=== PATIENT | male | born 1960 | race Caucasian/White ===

== ENCOUNTER 2023-04-26 03:57 | Inpatient (IN) | payer OTHER, SELFPAY ==
--- NOTE | 2023-04-26 04:01 | ECG_ITS ---
Test Reason : CHEST PAIN Blood Pressure : / mmHG Vent. Rate : 105 BPM Atrial Rate : 000 BPM P-R Int : 000 ms QRS Dur : 094 ms QT Int : 344 ms P-R-T Axes : 000 010 044 degrees QTc Int : 454 ms Atrial fibrillation with rapid ventricular response Minimal voltage criteria for LVH, may be normal variant ( [employer] product ) Anteroseptal infarct , age undetermined Abnormal ECG No previous ECGs available Referred By: Tracy Naylor Electronically Signed By:HERMAN LANDRUM
[2023-04-26 07:00] LABS: D Dimer High Sensitivity 359 NG/ML
--- NOTE | 2023-04-26 07:00 | CA_ITS ---
Transthoracic Echocardiogram Patient (Last, First, Middle): Lázaro Granda F Gender: Male Date of : 1960 Age: 62 Procedure Date: 04/26/2023 Procedure Type: Transthoracic Echocardiogram Location: ER Height: 180.34 cm Weight: 101.61 kg BSA: 2.21 m2 Heart Rate: 96 bpm BP: 136 / 74 mmHg Visual Specialist: KENNY Referring MD: Keshav Richard MD Mold Finisher: Ben Hunter MD Symptoms: chest pain, suspected ACS, to eval for WMA Study Quality: Fair ECG Rhythm: Atrial Fibrillation Conclusions: - 1. Normal LV ejection fraction 55-60% with mild asymmetric septal hypertrophy 2. Mildly to moderately dilated left atrium 3. Aortic valve not well visualized but there appears to be mild to-moderate aortic regurgitation and possibly early mild aortic stenosis 4. Mildly dilated ascending aorta at 3.7 cm 5. No gross pericardial effusion Findings Left Ventricle Normal left ventricular size, thickness, and systolic function. The visually estimated ejection fraction is between 55-60%. Diastolic function is indeterminate on the basis of available data. There is mild septal asymmetric hypertrophy. Right Ventricle Normal right ventricular cavity size and systolic function. Atria The left atrium is mildly dilated. Interatrial shunt cannot be excluded. The right atrium is likely dilated. Aortic Valve The aortic valve was not well visualized. There is mild calcification of the aortic valve. There is mild to moderate aortic valve regurgitation. Mitral Valve The mitral valve was not well visualized. There is trace mitral valve regurgitation. There is no mitral valve stenosis. Pulmonic Valve The pulmonic valve was not well visualized. Tricuspid Valve Likely normal tricuspid valve structure and function. Tricuspid regurgitation envelope is inadequate for calculation of right ventricular systolic pressure. Normal right atrial pressure. Great Vessels The pulmonary artery was not well visualized. There is mild dilatation of the ascending aorta measuring 3.70 cm. Venous The inferior vena cava is normal in size and collapses greater than 50% with inspiration. Pericardium/Pleural There is no evidence of pericardial effusion. Prior Study Comparison No prior study available for comparison. Measurements 2D Linear Measurements IVSd: 0.92 0.6-0.9/0.6-1.0 cm LVIDd: 5.67 3.9-5.3/4.2-5.9 cm LVIDd Index: 2.57 2.4-3.2/2.2-3.1 cm/m2 LVIDs: 2.60 2.0-3.6 cm LVPWd: 1.04 0.7-1.1 cm LA Diam: 3.50 2.7-3.8/3.0-4.0 cm LAIDs Index: 1.58 1.5-2.3 cm/m2 LV Mass: 272.02 67-162/88-224 g LV Mass Index: 123.09 43-95/49-115 g/m2 LVOT Diam: 2.30 3.0+(-)1.3 cm 2D Systolic Function EF 4C: 55.30 >55% EF 2C: 56.80 >55% EF BiP: 58.50 >55% Mitral Valve MV Pk E: 1.25 MV Decel Time: 210.00 E'Lateral: 8.90 E'Medial: 9.37 E/E' Med: 13.30 E/E' Lat: 14.00 PHT: 62.00 MVA PHT: 3.55 Decel [place]: 6.05 Aortic Valve AoV Pk Bryan: 2.10 AoV Mn Bryan: 1.48 AoV VTI: 0.40 AoV Pk Grad: 18.00 Aov Mn Grad: 10.00 CECIL Cont.VTI: 2.80 LVOT LVOT Pk Bryan: 1.31 LVOT Mn Bryan: 0.87 LVOT VTI: 0.27 LVOT Pk Grad: 7.00 LVOT Mn Grad: 4.00 LVOT Diam: 2.30 LVOT Area: 4.15 Diastolic Function MV Pk E: 1.25 E'Medial: 9.37 E/E' Med: 13.30 E' Laterial: 8.90 E/E' Lat: 14.00 Right Ventricle TAPSE (mm): 2.67 TVS' Bryan: 19.20 Tricuspid Valve RA Press: 3.00 Great Vessels Aorta Sinus of Valsalva: 3.46 2.0-3.5 cm Ao Asc: 3.70 2.1-3.4 cm Updated in Other Vendor System with Status of Final Ben Hunter MD electronically signed on 04/27/2023 8:26:13 AM with status of Final
[2023-04-26 07:01] LABS: Basophils Absolute Auto 0.1 X10*3/uL (0.0-0.2); Basophils Percent Auto 0.7 % (0-2); Eosinophils Absolute Auto 0.2 X10*3/uL (0.0-0.4); Eosinophils Percent Auto 1.9 % (0-4); Hematocrit 44.5 % (42.0-52.0); Hemoglobin 14.9 g/dl (14.0-18.0); Imm Gran Abs Auto 0.04 X10*3/uL (0.00-0.03); Imm Gran Pct Auto 0.4 % (0.0-0.4); Lymphocytes Absolute Auto 2.1 X10*3/uL (1.2-4.9); Lymphocytes Percent Auto 19.8 % (20-40); MANUAL DIFF FLAG NO; Mean Corpuscular HGB Conc 33.5 g/dl (31.0-36.0); Mean Corpuscular Hemoglobin 29.2 pg (27.0-33.0); Mean Corpuscular Volume 87.3 fL (80.0-98.0); Mean Platelet Volume 9.3 fL (9.4-12.4); Monocytes Absolute Auto 1.2 X10*3/uL (0.1-1.2); Monocytes Percent Auto 10.7 % (2-11); Neutrophils Absolute Auto 7.2 x10*3/uL (2.0-8.3); Neutrophils Percent Auto 66.5 % (45-73); Platelet Count 261 X10*3/uL (160-400); Red Cell Distribution Width 13.9 % (11.0-16.0); White Blood Count 10.8 X10*3/uL (4.8-10.8)
[2023-04-26 07:12] LABS: Anion Gap 13 (12-20); Blood Urea Nitrogen 24 mg/dL (9-16); Carbon Dioxide 24 mmol/L (22-29); Chloride 106 mmol/L (96-108); Estimated Glomerular Filt Rate > 60; Glucose Random 121 mg/dL (60-115); Lipase 33 U/L (8-78); Potassium 4.2 mmol/L (3.3-5.1); Sodium 139 mmol/L (135-145)
[2023-04-26 07:13] LABS: Troponin-I High Sensitivity 2.8 ng/L (<3.5-35.0)
[2023-04-26 07:25] VITALS: BP 139/77; PULSE 84; RESP 24; TEMP 37.5; O2SAT 94
[2023-04-26 07:26] LABS: Calcium 9.4 mg/dL (8.4-10.2)
[2023-04-26 10:43] VITALS: BP 136/74; PULSE 95; RESP 22; O2SAT 95
[2023-04-26 10:48] VITALS: BMI 31.4
--- NOTE | 2023-04-26 10:58 | P.HPHOSP_ITS ---
History of Present Illness Date of Service: 04/26/23 Chief Complaint: chest pain This is a 62 year old male with a PMH of HTN (on 3 meds), hypertriglyceridemia, possible aortic regurg (by his history) who presented to [facility] over night with sudden onset chest pain. The patient reports that he was in his usual state of health the day prior to admission. Around 9pm the evening before, the patient experienced some heartburn after eating a snack. This was relieved with some antacids. He eventually fell asleep but was awoken around 3AM on the day of admission due to severe substernal chest pain which was constant. He again attempted antacids but had minimal improvement and hence, he prestned to [facility]. The patient denies any prior such episodes. In fact, he appears to be fairly physically active and goes to the gym routinely. He denies any family history of premature cardiac disease. He denies tobacco. While in the ED, his work up revealed A. Fib with RVR. His chest pain has improved and he now describes it as more of a soreness. His initial HS trop-I was 2.8, a repeat is pending. Review of Systems 2 Review of Systems: negative except HPI PMFSH Pertinent family history: CAD in mother, but she lived until her 90s Social History (Updated 04/26/23 @ 11:06 by Keshav Richard MD) Alcohol intake: current Alcohol intake frequency: 0-2 drinks per day Patient Tobacco Use Status: Never used Tobacco Meds Allergies Allergy/AdvReac Type Severity Reaction Status Date / Time gabapentin Allergy Hallucinati Verified 04/26/23 10:53 ons Physical Exam 2 Vital Signs and Narrative: Vital Signs: Last Vital Signs Temp 99.5 F 04/26/23 07:25 Pulse 95 04/26/23 10:43 Resp 22 H 04/26/23 10:43 BP 136/74 04/26/23 10:43 Pulse Ox 95 04/26/23 10:43 O2 Del Method Room Air 04/26/23 10:43 BMI result Body Mass Index 31.4 Const: Other: Constitutional - Awake and Alert, No apparent distress Eyes - PERRLA, EOMI Cardiovascular - S1S2, RRR, No edema Respiratory - Normal lung expansion, Normal respiratory effort, No respiratory distress, CTA bilaterally Gastrointestinal - NT / ND; +BS; No rebound or guarding - No CVA tenderness Extremities - no calf tenderness bilaterally, no swelling Musculoskeletal - Normal inspection, normal ROM Skin - Warm/Dry Neurological - Alert & oriented x3, No focal deficit Psychological - Appropriate affect Results Labs 04/26/23 04:18 04/26/23 04:18 Labs: Laboratory Results - last 24 hr 04/26/23 04:18 MCV 87.3 MCH 29.2 MCHC 33.5 RDW 13.9 Plt Count 261 MPV 9.3 L Immature Gran % (Auto) 0.4 Neut % (Auto) 66.5 Lymph % (Auto) 19.[address] [place] % (Auto) 10.7 Eos % (Auto) 1.9 Baso % (Auto) 0.7 Lymph # (Auto) 2.1 [place] # (Auto) 1.2 Eos # (Auto) 0.2 Baso # (Auto) 0.1 Abs Immat Gran (auto) 0.04 H Absolute Neuts (auto) 7.2 Absolute Nucleated RBC 0.000 Nucleated RBC % (auto) 0.0 D-Dimer High Sensitivty 359 Anion Gap 13 Estim Creat Clear Calc TNP Estimated GFR > 60 Random Glucose 121 H Calcium 9.4 Lipase 33 Assessment and Plan (1) Hypertriglyceridemia: Status: Acute (2) Essential hypertension: Status: Acute Plan This is a 62 year old male with PMH of HTN and hypertriglyceridemia who presents to the ED with sudden onset chest pain. He is found to be in new onset A. Fib with RVR. However, his presentation is most concerning for acute coronary syndrome, hence he will be admitted for further work up and management. 1. Suspected ACS Initial HS trop-I negative and EKG with non-specific T wave changes; however, given his presentation, ACS remains high on differential Will repeat troponin and initiate anticoauglation 2d echo and cardiology consult ASA, statin 2. New onset A. fib with RVR rates improving await med rec and continue/adjust meds as needed likely needs OAC 3. HTN on multiple meds at home continue once med rec done 4. Hypertriglyceridemia continue baseline meds check lipid panel Full Code DVT pptx, Lovenox Time Spent With Patient Time: Total time managing care of this patient today ____ minutes. Quality Stroke Does the patient have a stroke diagnosis?: No VTE Prior VTE?: No VTE Risk Level:: Medical - moderate - high VTE Device Contraindication: Patient Refused VTE Drug Contraindication: N/A - Med Ordered
[2023-04-26 11:19] LABS: Troponin-I High Sensitivity 3.2 ng/L (<3.5-35.0)
--- NOTE | 2023-04-26 12:14 | PM.CNCAR ---
History of Present Illness History of Present Illness Date of Service: 04/26/23 Requesting physician: Keshav Richard Consult reason: chest pain and atrial fibrillation Chief complaint: Chest Pain Narrative: I was consulted to see Lázaro in cardiology consultation today for chest discomfort as well as new onset atrial fibrillation. He is a 62-year-old male with prior history of hypertension, hyperlipidemia, aortic regurgitation as per him related to aortic valve pathology as per him, sees Dr. Braga at [facility], acid reflux disease, anxiety. Patient said he was in usual state of health yesterday, had a late meal yesterday after hours did not sit well with him and he got some discomfort in his chest. He took some Cristiane-[place] with relief of his discomfort. He then went to bed and then nighttime run 3 and woke up with severe chest pressure. He has never had similar symptoms in the past. Got extremely concerned any came to the emergency room. His EKG then reveal atrial fibrillation with nonspecific ST changes. His 1st troponin was negative. He had a 2nd troponin which was also within normal limits with no delta. He was then given some GI cocktail and he says symptoms are gradually subsiding. He remains in atrial fibrillation with more controlled ventricular response at this point time. He is somewhat anxious about it. He has never had any cardiac events in the past. He denies having myocardial infarction in the past. He does have acid reflux after he eats late but symptoms are usually resolve with Cristiane-[place] in the past. He has never had any trouble swallowing. No other GI issues in the past. He has longstanding history of hypertension which is borderline control at this point time on 3 different agents. He also has hypertriglyceridemia. No strong family history for premature coronary artery disease. 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 Review of Systems Constitutional: Constitutional: Reports no additional constitutional complaints Eyes: Eyes: Reports no additional eye complaints Cardiovascular: Cardiovascular: Reports chest pain at rest, Denies rapid heart rate, Denies leg edema, Denies lightheadedness, Denies Loss of Consciousness, Denies palpitations and Denies dyspnea Respiratory: Respiratory: Reports no additional respiratory complaints and Denies dyspnea Gastrointestinal: Gastrointestinal: Reports no additional gastrointestinal complaints Genitourinary: Genitourinary: Reports no additional male genitourinary complaints Musculoskeletal: Musculoskeletal: Reports no additional musculoskeletal complaints Integumentary/Breasts: Skin/Breast: Reports system reviewed and no additional complaints, except as docu Neurologic: Reports system reviewed and no additional complaints, except as documented Psychiatric: Psychiatric: Reports no additional psychiatric complaints Endocrine: Endocrine: Reports no additional endocrine complaints and Denies palpitations Allergic/Immunologic: Allergic/Immunologic: Reports no additional allergic/immunologic complaints [facility] Social History Social History Alcohol intake: current Alcohol intake frequency: 0-2 drinks per day Patient Tobacco Use Status: Never used Tobacco Use of substances other than those prescribed or required for medical reasons: No Advance Directives: No Advance Directives Information Provided: Yes Meds Allergies Allergy/AdvReac Type Severity Reaction Status Date / Time gabapentin Allergy Hallucinati Verified 04/26/23 10:53 ons Active Medications: Current Medications Acetaminophen (Acetaminophen 325 Mg Tablet) 650 mg PO Q6H PRN PRN Reason: Pain, Mild (Pain Scale 1-3) Enoxaparin Sodium (Enoxaparin Sodium 100 Mg/Ml Syringe) 100 mg 1 mg/kg (100 mg) SUBCUT Q12H KONRAD Fenofibrate (Fenofibrate 160 Mg Tablet) 160 mg PO DAILY KONRAD Metoprolol Tartrate (Metoprolol Tartrate 25 Mg Tablet) 25 mg PO Q6H KONRAD; Protocol Ondansetron HCl (Ondansetron Hcl 4 Mg/2 Ml Vial) 4 mg IVPUSH Q8H PRN PRN Reason: Nausea and Vomiting Sodium Chloride (0.9 % Sodium Chloride Flush 3 Ml Syringe) 3 ml IVFLUSH QSHIFT KONRAD Physical Exam Vital Signs: Vital Signs: Last Vital Signs Temp 99.5 F 04/26/23 07:25 Pulse 95 04/26/23 10:43 Resp 22 H 04/26/23 10:43 BP 136/74 04/26/23 10:43 Pulse Ox 95 04/26/23 10:43 O2 Del Method Room Air 04/26/23 10:43 BMI result Body Mass Index 31.4 Const: General: cooperative, comfortable, no acute distress, well developed, alert, awake and anxious Nutritional Appearance: overweight Orientation/consciousness: patient oriented x3 Limitations: no limitations HEENT: Head: Yes normocephalic and Yes atraumatic Neck: Neck: Yes trachea midline, Yes supple and Yes no JVD Resp: Effort & Inspection: normal respiratory effort Auscultation: clear to auscultation bilaterally Cardio: Jugular venous distension: no JVD Palpation: normal PMI Rate: regular rate Rhythm: regular rhythm Heart sounds: S1 normal heart sound present, S2 normal heart sound present, no click, no gallops and Murmur heart sound present diastolic early GI: Auscultation: normal bowel sounds Skin: General skin exam: no rashes or lesions noted Neuro: General: patient oriented x3 and no focal motor deficits Extrem: General: Yes no clubbing, cyanosis or edema Psych: Appearance: grossly normal Affect: Anxious affect present Objective Labs and Meds 04/26/23 04:18 04/26/23 04:18 Lab results: Laboratory Results - last 24 hr 04/26/23 04/26/23 04:18 10:51 WBC 10.8 RBC 5.10 Hgb 14.9 Hct 44.5 MCV 87.3 MCH 29.2 MCHC 33.5 RDW 13.9 Plt Count 261 MPV 9.3 L Immature Gran % (Auto) 0.4 Neut % (Auto) 66.5 Lymph % (Auto) 19.8 L [place] % (Auto) 10.7 Eos % (Auto) 1.9 Baso % (Auto) 0.7 Lymph # (Auto) 2.1 [place] # (Auto) 1.2 Eos # (Auto) 0.2 Baso # (Auto) 0.1 Abs Immat Gran (auto) 0.04 H Absolute Neuts (auto) 7.2 Absolute Nucleated RBC 0.000 Nucleated RBC % (auto) 0.0 D-Dimer High Sensitivty 359 Sodium 139 Potassium 4.2 Chloride 106 Carbon Dioxide 24 Anion Gap 13 BUN 24 H Creatinine 1.03 Estim Creat Clear Calc TNP Estimated GFR > 60 Random Glucose 121 H Calcium 9.4 Troponin I High Sens 2.8 3.2 Lipase 33 EKG shows atrial fibrillation with nonspecific ST changes Assessment and Plan (1) Chest pain: Status: Acute Patient present with acute retrosternal chest discomfort. His 2 troponins serially are within normal limits with persistent chest pain and no significant EKG changes likelihood of acute coronary syndrome is low. Possibilities include esophageal spasm related acid reflux disease. His symptoms have improved with GI cocktail. I would like to obtain an echocardiogram at rest to assess for LV systolic function any regional wall motion abnormality that may climate change risk assessor plan to cardiac catheterization. Otherwise I would perform an outpatient stress test on him given his multiple risk factors. (2) Atrial fibrillation: Status: Acute New onset atrial fibrillation of unclear duration. He is currently not having his symptoms despite being in atrial fibrillation. He said he had a lot of caffeine yesterday along with pain could be new onset atrial fibrillation although this is unclear. We discussed about given his age pursuing rhythm control approach as per multiple studies. We discussed to approaches including more acutely LARA guided synchronized cardioversion or 3-4 weeks of oral anticoagulation followed by synchronized cardioversion. Would rather prefer to get this done sooner rather than later. He is being admitted to the hospital. Start on Lovenox 1 milligram/kg subQ q.12 hours. Lopressor 25 mg q.6 hours. Continue amlodipine therapy. If there is no need for urgent cardiac catheterization would pursue LARA guided cardioversion tomorrow. Please keep him NPO after midnight. We discussed the risks, benefits, alternatives to both procedures, he understands agrees. was present at bedside at all times. Will follow with you Time Spent With Patient Time: Total time managing care of this patient today ____ minutes. Procedures Date of Service Date of Service: 04/26/23
--- NOTE | 2023-04-26 12:40 | ED_ITS ---
HPI - Chest Pain General Chief Complaint: Chest Pain Stated Complaint: Chest Pain Source: patient and family Mode of arrival: ambulatory Limitations: no limitations History of Present Illness HPI narrative: Chief Complaint: chest pain This is a 62 year old male with a PMH of HTN (on 3 meds), hypertriglyceridemia, possible aortic regurg (by his history) who presented to [facility] over night with sudden onset chest pain. The patient reports that he was in his usual state of health the day prior to admission. Around 9pm the evening before, the patient experienced some heartburn after eating a snack. This was relieved with some antacids. He eventually fell asleep but was awoken around 3AM on the day of admission due to severe substernal chest pain which was constant. He again attempted antacids but had minimal improvement and hence, he prestned to [facility]. The patient denies any prior such episodes. In fact, he appears to be fairly physically active and goes to the gym routinely. He denies any family history of premature cardiac disease. He denies tobacco. Related Data Home Medications Medication Instructions Recorded Confirmed amlodipine 10 mg tablet 10 mg PO DAILY 04/26/23 04/26/23 fenofibrate 160 mg tablet 160 mg PO DAILY 04/26/23 04/26/23 lisinopril 5 mg tablet 5 mg PO DAILY 04/26/23 04/26/23 Previous Rx's Medication Instructions Recorded dronedarone 400 mg tablet (Multaq) 400 mg PO BID 30 days #60 tabs 04/27/23 metoprolol succinate 50 mg 50 mg PO DAILY 30 days #30 tabs 04/27/23 tablet,extended release 24 hr (Toprol XL) rivaroxaban 20 mg tablet (Xarelto) 20 mg PO QPM 30 days #30 tabs 04/27/23 Allergies Allergy/AdvReac Type Severity Reaction Status Date / Time gabapentin Allergy Hallucinati Verified 04/26/23 10:53 ons Review of Systems 2 Review of Systems: All other systems are reviewed and are negative Constitutional: Reports as per HPI and Reports no additional constitutional complaints Eyes: Reports as per HPI and Reports no additional eye complaints Reports system reviewed and no additional complaints, except as documented Cardiovascular: Reports as per HPI and Reports no additional cardiovascular complaints Respiratory: Reports as per HPI and Reports no additional respiratory complaints Gastrointestinal: Reports as per HPI and Reports no additional gastrointestinal complaints Genitourinary: Reports no additional female genitourinary complaints Musculoskeletal: Reports no additional musculoskeletal complaints Skin/Breast: Reports system reviewed and no additional complaints, except as docu Psychiatric: Reports no additional psychiatric complaints Endocrine: Reports no additional endocrine complaints Hematologic/Lymphatic: Reports no additional hematologic/lymphatic complaints Allergic/Immunologic: Reports no additional allergic/immunologic complaints Reports system reviewed and no additional complaints, except as documented and Reports Abnormal speech present [facility] Past Medical History Medical History Hypertriglyceridemia Essential hypertension Aortic regurgitation Social History Social History Household Members: Spouse Housing: House Do you presently have visiting nurse or other home services: No Alcohol intake: current Alcohol intake frequency: does not drink Patient Tobacco Use Status: Never used Tobacco Second Hand Smoke Exposure: No service: No Physical Exam 2 Vital Signs: Vital Signs: Last Vital Signs Temp 99.1 F 04/27/23 16:00 Pulse 82 04/27/23 16:00 Resp 18 04/27/23 16:00 BP 138/64 04/27/23 16:00 Pulse Ox 92 04/27/23 16:00 O2 Del Method Room Air 04/27/23 16:00 O2 Flow Rate 6 04/27/23 11:34 BMI result Body Mass Index 31.4 Vital signs have been reviewed and appear to be correct. Blood pressure elevated. Heart rate normal. Respiratory rate normal. Temperature normal. Oxygen saturation normal. Appearance: Alert. Oriented X3. No acute distress. Head: Normal external exam. Normocephalic. Atraumatic. No Huynh signs noted. No raccoon eyes noted Eyes: PERRLA. EOMI. Conjunctiva and sclera normal. Eyelids normal. ENT: TM's Normal. Pharynx normal. Uvula midline. Moist mucous membranes. No trismus noted. No drooling noted. No muffled voice noted. Neck: Normal inspection. Neck supple. FROM. No adenopathy. Thyroid Normal. No meningeal signs. No neck mass noted. CVS: Normal heart rate and rhythm. Heart sound normal. No murmurs noted. Pulses normal throughout. Respiratory: No respiratory distress. Painless inspiration. Breath sounds normal. No wheezes/rales/rhonchi noted. Chest nontender. No accessory muscle usage noted or decreased air movement noted. Abdomen: Soft and nontender. Bowel sounds normal in all 4 quadrants. No distention noted. No organomegaly noted. No visible injury noted. Back: No CVA tenderness. Full range of motion noted. Skin: Skin warm and dry. Normal skin color. Normal skin turgor. No rashes/lesions/lacerations noted. Extremities: No lower extremity edema. Extremities exhibit normal range of motion. Extremities nontender. Neuro: Oriented X 3. Cranial nerve exam: II-XII are grossly intact No motor deficit. No sensory deficit. Reflexes normal. Medications Administered Discontinued Medications Generic Name Dose Route Start Last Admin Trade Name Freq PRN Reason Stop Dose Admin Amlodipine Besylate 10 mg 04/27/23 09:00 04/27/23 07:50 Amlodipine Besylate 10 Mg Tablet PO 10 mg DAILY [facility] Administration Protocol Dronedarone 400 mg 04/27/23 10:45 04/27/23 12:18 Dronedarone Hcl 400 Mg Tablet PO 400 mg BID [facility] Administration Enoxaparin Sodium 100 mg 04/26/23 11:30 04/26/23 23:42 Enoxaparin Sodium 100 Mg/Ml Syringe 1 mg/kg (100 mg) 100 mg SUBCUT Administration Q12H [facility] Fenofibrate 160 mg 04/26/23 12:15 04/27/23 07:50 Fenofibrate 160 Mg Tablet PO 160 mg DAILY [facility] Administration Metoprolol Tartrate 25 mg 04/26/23 12:15 04/27/23 06:05 Metoprolol Tartrate 25 Mg Tablet PO 25 mg Q6H [facility] Administration Protocol Rivaroxaban 20 mg 04/27/23 13:15 04/27/23 13:24 Rivaroxaban 20 Mg Tablet PO 20 mg Q24H [facility] Administration Sodium Chloride 3 ml 04/26/23 16:00 04/27/23 19:33 0.9 % Sodium Chloride Flush 3 Ml Syringe [facility]USH [facility] Decision Making Differential Diagnosis Differential Diagnoses: The differential diagnosis associated with the presentation includes (ACS, pulmonary embolism, pneumothorax, pleural effusion, pneumonia, electrolyte abnormality, severe anemia.) Admission/Observation Consideration of admission/observation: Escalation of care including admission/observation considered Consult Healthcare Provider Management of the patient was discussed with: Hospitalist Lab Data MDM Lab Attestation statement: I reviewed the patient's lab results. 04/27/23 06:17 04/27/23 06:17 Labs: Lab Results 04/26/23 04/26/23 Range/Units 04:18 10:51 WBC 10.8 (4.8-10.8) X10*3/uL RBC 5.10 (4.60-5.80) X10*6/uL Hgb 14.9 (14.0-18.0) g/dl Hct 44.5 (42.0-52.0) % MCV 87.3 (80.0-98.0) fL MCH 29.2 (27.0-33.0) pg MCHC 33.5 (31.0-36.0) g/dl RDW 13.9 (11.0-16.0) % Plt Count 261 (160-400) X10*3/uL MPV 9.3 L (9.4-12.4) fL Immature Gran % (Auto) 0.4 (0.0-0.4) % Neut % (Auto) 66.5 (45-73) % Lymph % (Auto) 19.8 L (20-40) % [place] % (Auto) 10.7 (2-11) % Eos % (Auto) 1.9 (0-4) % Baso % (Auto) 0.7 (0-2) % Lymph # (Auto) 2.1 (1.2-4.9) X10*3/uL [place] # (Auto) 1.2 (0.1-1.2) X10*3/uL Eos # (Auto) 0.2 (0.0-0.4) X10*3/uL Baso # (Auto) 0.1 (0.0-0.2) X10*3/uL Abs Immat Gran (auto) 0.04 H (0.00-0.03) X10*3/uL Absolute Neuts (auto) 7.2 (2.0-8.3) x10*3/uL Absolute Nucleated RBC 0.000 (0.0-0.012) X10*3/uL Nucleated RBC % (auto) 0.0 (0.0-0.2) /100WBC D-Dimer High Sensitivty 359 NG/ML Sodium 139 (135-145) mmol/L Potassium 4.2 (3.3-5.1) mmol/L Chloride 106 (96-108) mmol/L Carbon Dioxide 24 (22-29) mmol/L Anion Gap 13 (12-20) BUN 24 H (9-16) mg/dL Creatinine 1.03 (0.5-1.4) mg/dL Estim Creat Clear Calc TNP Estimated GFR > 60 Random Glucose 121 H (60-115) mg/dL Calcium 9.4 (8.4-10.2) mg/dL Troponin I High Sens 2.8 3.2 (<3.5-35.0) ng/L Lipase 33 (8-78) U/L Independent Interpretation I performed an independent interpretation of an: EKG (AFib with rapid ventricular response of 1 5, LDH, normal axis deviation, no ST-T changes.) Discharge Plan Discharge Clinical Impression: Atrial fibrillation Patient Disposition: Admitted As Inpatient Interventions: Admission Worksheet (ED) Last Done: 04/27/23 06:25 Discharge Date/Time: 04/26/23 20:00
--- NOTE | 2023-04-26 13:19 | PHA.MEDREC ---
Pharmacy Consult ? Medication Reconciliation Pharmacy has completed the medication reconciliation.
[2023-04-26] MEDS: Fenofibrate 160 MG TABLET PO (14:36)
[2023-04-26] MEDS: Enoxaparin Sodium 100 MG/ML SYRINGE SUBCUT ×2 (14:36→23:42)
[2023-04-26] MEDS: Metoprolol Tartrate 25 MG TABLET PO ×3 (14:36→23:43)
[2023-04-26 14:41] VITALS: BP 151/70; PULSE 95; RESP 18; O2SAT 98
--- NOTE | 2023-04-26 15:00 | PC.NURSE ---
pt was medicated as charted, he states low level sternal chest tightness.
[2023-04-26 20:57] LABS: Prothrombin Time 12.6 SEC (11.1-13.3)
[2023-04-26 20:59] LABS: Partial Thromboplastin Time 36.7 SEC (26.0-36.4)
[2023-04-26 23:35] VITALS: BP 148/69; PULSE 82; RESP 17; TEMP 37.2; O2SAT 95
[2023-04-26] MEDS: 0.9 % Sodium Chloride Flush 3 ML SYRINGE IVFLUSH (23:43)
[2023-04-27] VITALS (10 sets, daily range): BP systolic 124–155; BP diastolic 58–77; PULSE 73–94; RESP 15–18; TEMP 36.1–37.3; O2SAT 92–98
[2023-04-27] MEDS: Metoprolol Tartrate 25 MG TABLET PO (06:05)
[2023-04-27 06:43] LABS: Hematocrit 43.6 % (42.0-52.0); Hemoglobin 14.3 g/dl (14.0-18.0); Mean Corpuscular HGB Conc 32.8 g/dl (31.0-36.0); Mean Corpuscular Hemoglobin 29.1 pg (27.0-33.0); Mean Corpuscular Volume 88.8 fL (80.0-98.0); Mean Platelet Volume 9.3 fL (9.4-12.4); Platelet Count 224 X10*3/uL (160-400); Red Blood Count 4.91 X10*6/uL (4.60-5.80); Red Cell Distribution Width 14.1 % (11.0-16.0); White Blood Count 6.6 X10*3/uL (4.8-10.8)
[2023-04-27 06:59] LABS: Anion Gap 11 (12-20); Blood Urea Nitrogen 15 mg/dL (9-16); Calcium 9.1 mg/dL (8.4-10.2); Carbon Dioxide 23 mmol/L (22-29); Chloride 108 mmol/L (96-108); Creatinine Clr Calc Pharmacy 86.7; Estimated Glomerular Filt Rate > 60; Glucose Random 97 mg/dL (60-115); Sodium 138 mmol/L (135-145)
[2023-04-27] MEDS: amLODIPine Besylate 10 MG TABLET PO (07:50)
[2023-04-27] MEDS: Fenofibrate 160 MG TABLET PO (07:50)
[2023-04-27] MEDS: 0.9 % Sodium Chloride Flush 3 ML SYRINGE IVFLUSH (07:51)
--- NOTE | 2023-04-27 08:49 | CA_ITS ---
Transesophageal Echocardiogram Patient (Last, First, Middle): Lázaro Granda F Gender: Male Date of : 1960 Age: 62 Procedure Date: 04/27/2023 Procedure Type: Transesophageal Echocardiogram [place] [facility] [place] Height: 180.34 cm Weight: 101.61 kg BSA: 2.21 m2 Heart Rate: bpm BP: 144 / 80 mmHg Computer Applications Engineer: SB Referring MD: Ben Hunter MD Award Machine Operator: Ben Hunter MD Symptoms: Pre cardioversion Conclusion: ??? 1. [id number] left atrial enlargement with no thrombus or masses seen including in the left atrial appendage 2. Normal LV ejection fraction of 60 65% 3. Bicuspid aortic valve with moderate aortic regurgitation 4. No intracardiac thrombi, masses or vegetations 5. No significant intracardiac shunting 6. No significant atherosclerotic changes noted in the aorta 7. Pericardium within normal limits Findings Procedure Information Consent was obtained prior to the procedure. Pre LARA oral cavity was checked and revealed significant overcrowding. The adult 3D probe was passed with no difficulty. This was a technically good study. Left Ventricle There is mildly increased left ventricular wall thickness. The left ventricular systolic function is normal. The visually estimated ejection fraction is between 60-65%. There is no evidence of regional wall motion abnormalities. Diastolic function is indeterminate on the basis of available data. There is mild septal asymmetric hypertrophy. no masses or thrombi were noted in the left ventricular cavity. Right Ventricle Normal right ventricular cavity size and systolic function. Atria The left atrium is mildly dilated. There is no evidence of interatrial shunt by color Doppler. The left upper, right upper and right lower pulmonary in drain normally into the left atrium. There is smoke formation seen within the left atrium as well as the left atrial appendage. There are no masses or clot seen within the left atrium on the left atrial appendage. The left atrial appendage ejection velocities reduced. The left atrial appendage was identify a and imaged in multiple views. The interatrial septum was intact. The right atrium is likely dilated. Right atrium was free of any masses or thrombi. The IVC and SVC drain normally into the right atrium. Aortic Valve There is a bicuspid aortic valve. There is mild calcification of the aortic valve. There is mild thickening of the aortic valve. There is no aortic valve stenosis. There is no evidence of a mass on the aortic valve. There is moderate aortic valve regurgitation. The aortic valve regurgitation jet is eccentric. Mitral Valve Normal mitral valve structure and function. There is trace mitral valve regurgitation. There is no mitral valve stenosis. There is no mass noted on the mitral valve. Pulmonic Valve The pulmonic valve is likely normal. There is no mass noted on the pulmonic valve. There is trace pulmonic valve regurgitation. Tricuspid Valve Normal tricuspid valve structure. There is trace tricuspid valve regurgitation. There is no evidence of a mass on the tricuspid valve. Tricuspid regurgitation envelope is inadequate for calculation of right ventricular systolic pressure. Great Vessels All visible segments of the aorta are normal in size. The visualized portions of the pulmonary artery and branches are normal. Venous The inferior vena cava is normal in size and collapses greater than 50% with inspiration. Pericardium/Pleural There is no evidence of pericardial effusion. Updated by Ben Hunter on 12:06 PM with Status of Final Ben Hunter MD electronically signed on 04/27/2023 12:06:56 PM with status of Final
--- NOTE | 2023-04-27 08:50 | MHC.SHP ---
Pre-Procedural Eval Section A Date of Service: 04/27/23 The patient is an INPATIENT: Yes Changes since office visit: Yes New Medical Problems, Yes Changes in Medication and Yes Patient answered all questions; No Cold of Flu in the past 2 weeks The History & Physical has been completed within 30 days and I have reviewed it.: Yes Section B Chief Complaint: Chest Pain Allergies: Allergies Allergy/AdvReac Type Severity Reaction Status Date / Time gabapentin Allergy Hallucinati Verified 04/26/23 10:53 ons Plan I have reviewed the history and physical and performed a pertinent physical examination on my patient. No changes have occurred unless specified. Time Spent With Patient Time: Total time managing care of this patient today ____ minutes.
--- NOTE | 2023-04-27 08:51 | MHC.CM.PN ---
Home self care is the goal; CM has initiated and will follow for dc planning. Patient lives with his and is functionally independent.
--- NOTE | 2023-04-27 09:17 | HO.ANESPROP2 ---
HPI - Anesthesia Eval Consult details Narrative: 62 M for LARA and cardioversion admitted with KENNY , shane fib RVR last ECHO moderate Aortic regurgitation Case discussed with the patient and the vallez filter operator . As per vallez filter operator possibility of ACS is low . [facility] Active Problems Active Problems: All Active Problems (Updated 04/27/23 @ 07:14 by Aaron Nicole) Atrial fibrillation (Acute) Atrial fibrillation (Acute) Chest pain (Acute) Hypertriglyceridemia (Acute) Essential hypertension (Acute) Past Medical History Medical History (Updated 04/27/23 @ 10:44 by Ben Hunter MD) Aortic regurgitation Functional capacity: independent ambulation Family History Family history of problems with anesthesia: No Surgical History History of Problems with Anesthesia: No Social History Social History Household Members: Spouse Housing: House Do you presently have visiting nurse or other home services: No Alcohol intake: current Alcohol intake frequency: does not drink Patient Tobacco Use Status: Never used Tobacco Second Hand Smoke Exposure: No service: No Meds Allergies Allergy/AdvReac Type Severity Reaction Status Date / Time gabapentin Allergy Hallucinati Verified 04/26/23 10:53 ons Active Medications: Current Medications Acetaminophen (Acetaminophen 325 Mg Tablet) 650 mg PO Q6H PRN PRN Reason: Pain, Mild (Pain Scale 1-3) Amlodipine Besylate (Amlodipine Besylate 10 Mg Tablet) 10 mg PO DAILY [facility]; Protocol Last Admin: 04/27/23 07:50 Dose: 10 mg Enoxaparin Sodium (Enoxaparin Sodium 100 Mg/Ml Syringe) 100 mg 1 mg/kg (100 mg) SUBCUT Q12H [facility] Last Admin: 04/26/23 23:42 Dose: 100 mg Fenofibrate (Fenofibrate 160 Mg Tablet) 160 mg PO DAILY [facility] Last Admin: 04/27/23 07:50 Dose: 160 mg Metoprolol Tartrate (Metoprolol Tartrate 25 Mg Tablet) 25 mg PO Q6H [facility]; Protocol Last Admin: 04/27/23 06:05 Dose: 25 mg Ondansetron HCl (Ondansetron Hcl 4 Mg/2 Ml Vial) 4 mg IVPUSH Q8H PRN PRN Reason: Nausea and Vomiting Sodium Chloride (0.9 % Sodium Chloride Flush 3 Ml Syringe) 3 ml IVFLUSH QSHIFT [facility] Last Admin: 04/27/23 07:51 Dose: 3 ml Home Medications Medication Instructions Recorded Confirmed Last Taken Type amlodipine 10 mg tablet 10 mg PO DAILY 04/26/23 04/26/23 04/25/23 History fenofibrate 160 mg tablet 160 mg PO DAILY 04/26/23 04/26/23 04/25/23 History lisinopril 5 mg tablet 5 mg PO DAILY 04/26/23 04/26/23 04/25/23 History Exam Exam Date and Time: April 27, [id number] Height,Weight and Vital Signs: Height 5 ft 11 in Weight 102 kg Last Vital Signs Temp 97.7 F 04/27/23 08:53 Pulse 94 04/27/23 08:53 Resp 16 04/27/23 08:53 BP 136/77 04/27/23 08:53 Pulse Ox 95 04/27/23 08:53 O2 Del Method Room Air 04/27/23 08:53 Pertinent Lab Results Pertinent Lab Results: Laboratory Tests 04/26/23 04/26/23 04/26/23 04:18 10:51 20:40 WBC 10.8 RBC 5.10 Hgb 14.9 Hct 44.5 MCV 87.3 MCH 29.2 MCHC 33.5 RDW 13.9 Plt Count 261 MPV 9.3 L Immature Gran % (Auto) 0.4 Neut % (Auto) 66.5 Lymph % (Auto) 19.8 L [place] % (Auto) 10.7 Eos % (Auto) 1.9 Baso % (Auto) 0.7 Lymph # (Auto) 2.1 [place] # (Auto) 1.2 Eos # (Auto) 0.2 Baso # (Auto) 0.1 Abs Immat Gran (auto) 0.04 H Absolute Neuts (auto) 7.2 Absolute Nucleated RBC 0.000 Nucleated RBC % (auto) 0.0 PT 12.6 INR 1.0 APTT 36.7 H D-Dimer High Sensitivty 359 Sodium 139 Potassium 4.2 Chloride 106 Carbon Dioxide 24 Anion Gap 13 BUN 24 H Creatinine 1.03 Estim Creat Clear Calc TNP Estimated GFR > 60 Random Glucose 121 H Calcium 9.4 Troponin I High Sens 2.8 3.2 Lipase 33 04/27/23 06:17 WBC 6.6 RBC 4.91 Hgb 14.3 Hct 43.6 MCV 88.8 MCH 29.1 MCHC 32.8 RDW 14.1 Plt Count 224 MPV 9.3 L Immature Gran % (Auto) Neut % (Auto) Lymph % (Auto) [place] % (Auto) Eos % (Auto) Baso % (Auto) Lymph # (Auto) [place] # (Auto) Eos # (Auto) Baso # (Auto) Abs Immat Gran (auto) Absolute Neuts (auto) Absolute Nucleated RBC 0.000 Nucleated RBC % (auto) 0.0 PT INR APTT D-Dimer High Sensitivty Sodium 138 Potassium 4.0 Chloride 108 Carbon Dioxide 23 Anion Gap 11 L BUN 15 Creatinine 1.06 Estim Creat Clear Calc 86.7 Estimated GFR > 60 Random Glucose 97 Calcium 9.1 Troponin I High Sens Lipase Airway Mallampati Class: IV Loose/Missing/Broken Teeth: Yes (left upper chipped tooth ) Assessment and Plan Assessment Anesthesia Assessment: Anesthesia Plan Discussed and Chart Reviewed Final Anesthetic Review Family History of Problems with Anesthesia: No History of Problems with Anesthesia: No NPO: Yes ASA Class: IV Final Preanesthetic Review: Meds/Allgs Chart Reviewed, Consent Obtained/Reviewed and Anes Risks/Benef Reviewed Patient Risk: Intermediate Procedure Risk: Intermediate Anesthetic Plan Anesthetic Plan: GA, MAC: and Agree w/ Assess. and Plan Disposition: Inp. Admit - [facility]
--- NOTE | 2023-04-27 10:38 | HO.CARDIVERS ---
Cardioversion Procedure Note Cardioversion Date of Procedure: Today Ordering Provider: Myself Performing Provider: Myself Indication for Procedure: New onset persistent atrial fibrillation Pre-Op Diagnosis: Same Post-Op Diagnosis: Converted to sinus rhythm Performed with Transesophageal Echo: Yes LARA findings (if LARA Performed): Dictated separately History: See my consult Consent: Verbal and Written consent was obtained from the patient before starting the procedure and confirming oral anticoagulation use. The patient was made aware of the risk of synchronized cardioversion including alternatives and benefits. Procedure: After consent obtained and LARA performed and left atrial appendage clot ruled out, cardioversion pads were attached in anteroposterior configuration and the patient was given general anesthesia by the anesthesia team. Once adequate anesthesia was achieved, patient was delivered 200 joules of biphasic synchronized energy in anteroposterior configuration. Complications: None Impression: Patient converted successfully to sinus rhythm Recommendations: 1. 12 lead EKG 2. Start Multaq 400 mg b.i.d. given his left atrial enlargement and frequent PACs 3. CPAP trial as outpatient to evaluate for adequacy of obstructive sleep apnea treatment 4. Aggressive control blood pressure 5. Stop transition to p.o. Xarelto 20 mg daily 6. Follow-up with his private branch exchange service advisor as outpatient in 2-4 weeks time after Holter monitor.
--- NOTE | 2023-04-27 10:42 | P.PNCA_ITS ---
Subjective Subjective Date of Service: 04/27/23 Principal diagnosis: Chest discomfort, atrial fibrillation Interval history: Patient status post LARA guided cardioversion. Converted to sinus rhythm. Noted postoperatively that he had frequent PACs. Hemodynamically stable. Blood pressure is controlled. He had to undergo general anesthesia he as he had significant apnea post propofol. Review of Systems Constitutional: Reports no additional constitutional complaints Cardiovascular: Reports no additional cardiovascular complaints Gastrointestinal: Reports no additional gastrointestinal complaints Musculoskeletal: Reports no additional musculoskeletal complaints Reports system reviewed and no additional complaints, except as documented Psychiatric: Reports no additional psychiatric complaints Endocrine: Reports no additional endocrine complaints Physical Exam Vital Signs: Last Vital Signs Temp 97.7 F 04/27/23 08:53 Pulse 94 04/27/23 08:53 Resp 16 04/27/23 08:53 BP 136/77 04/27/23 08:53 Pulse Ox 95 04/27/23 08:53 O2 Del Method Room Air 04/27/23 08:53 BMI result Body Mass Index 31.4 Const General: cooperative, comfortable, no acute distress, well developed, alert, awake and anxious Nutritional Appearance: overweight Orientation/consciousness: patient oriented x3 Limitations: no limitations Neck Neck: Yes trachea midline, Yes supple and Yes no JVD Resp Effort & Inspection: normal respiratory effort Auscultation: clear to auscultation bilaterally Cardio Jugular venous distension: no JVD Palpation: normal PMI Rate: regular rate Rhythm: regular rhythm Heart sounds: S1 normal heart sound present, S2 normal heart sound present, no click, no gallops and Murmur heart sound present diastolic early GI Auscultation: normal bowel sounds Neuro General: patient oriented x3 and no focal motor deficits Extrem General: Yes no clubbing, cyanosis or edema Psych Appearance: grossly normal Affect: Anxious affect present Objective Labs and Meds 04/27/23 06:17 04/27/23 06:17 Lab results: Laboratory Results - last 24 hr 04/26/23 04/26/23 04/27/23 10:51 20:40 06:17 WBC 6.6 RBC 4.91 Hgb 14.3 Hct 43.6 MCV 88.8 MCH 29.1 MCHC 32.8 RDW 14.1 Plt Count 224 MPV 9.3 L Absolute Nucleated RBC 0.000 Nucleated RBC % (auto) 0.0 PT 12.6 INR 1.0 APTT 36.7 H Sodium 138 Potassium 4.0 Chloride 108 Carbon Dioxide 23 Anion Gap 11 L BUN 15 Creatinine 1.06 Estim Creat Clear Calc 86.7 Estimated GFR > 60 Random Glucose 97 Calcium 9.1 Troponin I High Sens 3.2 Progress Note: A&P Assessment and plan (1) Atrial fibrillation: Status: Acute Assessment and Plan: Patient persistent new onset atrial fibrillation status post LARA guided cardioversion. There is evidence of left atrial enlargement mild to moderate left atrial enlargement probably related to undertreated sleep apnea and also longstanding hypertension. This makes him prone to get recurrent atrial fibrillation as well as thromboembolic complication related to atrial fibrillation. Although his CHADSVASc score is 1, given his left atrial enlargement I would consider long-term oral anticoagulation. Transition to p.o. Xarelto 20 mg daily. Given his left atrial enlargement as well as frequent PACs post cardioversion I think he is will require antiarrhythmic drug support. Will start him on Multaq 400 mg b.i.d.. Hold off on beta-yo therapy. Aggressive control blood pressure is required and this can be pursued as outpatient. I would also consider doing CPAP titration trial as outpatient for him to assess for adequacy of sleep apnea treatment. (2) Aortic regurgitation: Status: Acute Assessment and Plan: Moderate aortic regurgitation by LARA appears to be related to bicuspid aortic valve. Continue monitor by his outpatient cardiology team. Continue risk factor modification. Would consider SBE prophylaxis. (3) Chest pain: Status: Acute Assessment and Plan: Chest pain syndrome without any high likelihood of acute coronary syndrome. Most likely related to esophageal spasm. Consider GI workup as outpatient. 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 Will sign of the case. Patient can most likely be discharged home later today. Thank you for allowing me to partake in his care Time Spent With Patient Time: Total time managing care of this patient today ____ minutes. Progress Note: Quality Stroke Does the patient have a stroke diagnosis?: No Procedures Date of Service Date of Service: 04/27/23
--- NOTE | 2023-04-27 10:46 | ECG_ITS ---
Test Reason : post cardioversion Blood Pressure : / mmHG Vent. Rate : 076 BPM Atrial Rate : 076 BPM P-R Int : 198 ms QRS Dur : 082 ms QT Int : 382 ms P-R-T Axes : 007 003 027 degrees QTc Int : 429 ms Sinus rhythm with Premature atrial complexes in a pattern of bigeminy Low voltage QRS Cannot rule out Anteroseptal infarct (cited on or before 26-APR-2023) Abnormal ECG When compared with ECG of 26-APR-2023 04:01, Sinus rhythm has replaced Atrial fibrillation Nonspecific T wave abnormality no longer evident in Lateral leads Referred By: Ben Hunter Electronically Signed By:HERMAN LANDRUM
[2023-04-27] MEDS: Dronedarone HCl 400 MG TABLET PO (12:18)
--- NOTE | 2023-04-27 13:22 | HE.PHANOTE ---
RE: xarelto dose timing Received a call from Kely Iverson regarding timing of Xarelto. Order was initially put in for 1130 dose on 04/27 but pharmacy updated time to 1700 per policy. The dose was initially put in to be given at [address] Hunter in cardiology requested that time post cardioversion for the patient. I changed the order to give q24 hours starting now.
[2023-04-27] MEDS: Rivaroxaban 20 MG TABLET PO (13:24)
--- NOTE | 2023-04-27 14:41 | PM.DS ---
DS: Providers Provider Date of Service: 04/27/23 Date of admission: 04/26/23 10:56 Date of discharge: 04/27/23 Primary care physician: Unknown Physician Consults: 04/26/23 10:57 Consult to Cardiology Routine Consulting Provider: [facility] [place] [facility] Reason for consultation: chest pain, concern over ACS, new onset A. Fib Attending physician on discharge: Keshav Richard Discharging clinician: Kely Iverson DS: Diagnosis Discharge Diagnosis (1) Atrial fibrillation: Status: Acute (2) Aortic regurgitation: Status: Acute (3) Chest pain: Status: Acute DS: Summary Hospital Course Hospital Course: From H&P on day of admission This is a 62 year old male with a PMH of HTN (on 3 meds), hypertriglyceridemia, possible aortic regurg (by his history) who presented to [facility] [place] [facility] ED over night with sudden onset chest pain. The patient reports that he was in his usual state of health the day prior to admission. Around 9pm the evening before, the patient experienced some heartburn after eating a snack. This was relieved with some antacids. He eventually fell asleep but was awoken around 3AM on the day of admission due to severe substernal chest pain which was constant. He again attempted antacids but had minimal improvement and hence, he presented to [facility] [place] ED. The patient denies any prior such episodes. In fact, he appears to be fairly physically active and goes to the gym routinely. He denies any family history of premature cardiac disease. He denies tobacco. While in the ED, his work up revealed A. Fib with RVR. His chest pain has improved and he now describes it as more of a soreness. His initial HS trop-I was 2.8, a repeat is pending New onset atrial fibrillation - patient was seen by cardiology and underwent successful LARA guided cardioversion. Although his CHADSVASc score is 1, given his left atrial enlargement cardiology recommended long-term oral anticoagulation due to risk for recurrent atrial fibrillation as well as thromboembolic complication related to atrial fibrillation. He was started on Multaq 400 b.i.d., beta-yo was discontinued. ECHO showed moderate aortic regurgitation and also appears to be related to bicuspid aortic valve. Consider SBE prophylaxis Recommend outpatient sleep study for CPAP titration also recommended. Chest pain syndrome without any high likelihood of acute coronary syndrome. Cardiac enzymes remain negative. No EKG changes. ECHO with no wall motion abnormalities. Most likely related to esophageal spasm. Consider GI workup as outpatient. However given his risk factor would consider stress testing that can be done as an outpatient through primary creping machine operator helper's office. Time Spent with Patient Time attestation: Total time managing care of this patient today ____ minutes. Discharge coordination time: Greater than 30 minutes Quality: Safe Use of Opioids Does Pt have an Active Cancer Diagnosis on the Problem List?: No Quality: Stroke Does the patient have a stroke diagnosis?: No Physical Exam Vital Signs: Vital Signs: Last Vital Signs Temp 97.6 F 04/27/23 12:00 Pulse 78 04/27/23 12:00 Resp 16 04/27/23 12:00 BP 127/58 L 04/27/23 12:00 Pulse Ox 94 04/27/23 12:00 O2 Del Method Room Air 04/27/23 12:00 O2 Flow Rate 6 04/27/23 11:34 BMI result Body Mass Index 31.4 Const: General: cooperative, comfortable, no acute distress, alert and awake Nutritional Appearance: average body habitus Orientation/consciousness: patient oriented x3 Resp: Effort & Inspection: normal respiratory effort, able to speak in complete sentences, respiratory distress and uses accessory muscles Cardio: Rate: regular rate Neuro: General: patient oriented x3, moves all extremities and CN's II-XI intact bilaterally Extrem: General: Yes no pedal edema DS: Data Data Completed and Pending Labs on day of discharge: Laboratory Results - last 24 hr 04/26/23 04/27/23 20:40 06:17 WBC 6.6 RBC 4.91 Hgb 14.3 Hct 43.6 MCV 88.8 MCH 29.1 MCHC 32.8 RDW 14.1 Plt Count 224 MPV 9.3 L Absolute Nucleated RBC 0.000 Nucleated RBC % (auto) 0.0 PT 12.6 INR 1.0 APTT 36.7 H Sodium 138 Potassium 4.0 Chloride 108 Carbon Dioxide 23 Anion Gap 11 L BUN 15 Creatinine 1.06 Estim Creat Clear Calc 86.7 Estimated GFR > 60 Random Glucose 97 Calcium 9.1 Discharge Plan Discharge Anticipated Discharge Date/Time: 04/27/23 15:47 Patient Disposition: Home, Self-Care Discharge Diagnosis: new onset atrial fibrillation chest pain Referrals: Ben Hunter MD [Physician] - 1 Week Physician,Unknown J [Primary Care Provider] - 1 Week Discharge Medications: New Multaq 400 mg Tablet 400 mg PO BID 30 Days Qty: 60 0RF Xarelto 20 mg tablet 20 mg PO QPM 30 Days Qty: 30 0RF Rx Instructions: must administer with evening meal Continued amlodipine 10 mg tablet 10 mg PO DAILY lisinopril 5 mg tablet 5 mg PO DAILY fenofibrate 160 mg tablet 160 mg PO DAILY Discontinued metoprolol succinate 25 mg tablet extended release 24 hr 25 mg PO DAILY Discharge Orders: Discharge Order (Routine); Ordered 04/27/23 Ordered By: Kely Iverson Activity on Discharge: As tolerated Stand Alone Forms: Patient Portal Discharge page Care Plan Goals: see below Health Concerns: new atrial fibrillation chest pain Plan of Treatment: for atrial fibrillation - you have been started on a blood thinner xarelto, and a medication for rhythm control called multaq - take as prescribed bicuspid aortic valve - discuss with PCP need for SBE prophylaxis: ?The risk of IE is highest for invasive dental or invasive oral procedures For chest pain, this may be secondary to esophageal spasm. Discussed with PCP who can consider outpatient GI evaluation stop taking metoprolol call to schedule a follow up appointment with your primary creping machine operator helper or you can follow with [facility] [place] cardiology for possible stress test Assessment: see discharge summary Patient Instructions: A-fib (Atrial Fibrillation) (IP), Cardioversion (GEN)
--- NOTE | 2023-04-27 16:25 | MHC.CM.PN ---
Patient has been medically cleared for dc to home today, self care.
== END 2023-04-27 20:00 | disposition home or self-care (01) | DRG 201 ==
LOC: HO.ED 12:16 → HO.EDOVER 13:10 → HO.IMC 16:55
PROVIDERS: Internal Medicine Cardiovascular Disease; Admitting Provider Family Medicine; Emergency Provider Emergency Medicine; Visit Provider Physician Assistant Medical
PROC: 5A2204Z Restoration of Cardiac Rhythm, Single (ICD-10-PCS; CPT 93312; principal; 2023-04-27 09:30)
PROC: 5A2204Z Restoration of Cardiac Rhythm, Single (ICD-10-PCS; CPT 92960; 2023-04-27 09:30)
DX: I48.91 Unspecified atrial fibrillation (principal); Q23.1 Congenital insufficiency of aortic valve; K22.4 Dyskinesia of esophagus; G47.30 Sleep apnea, unspecified; E78.1 Pure hyperglyceridemia; I10 Essential (primary) hypertension; Z79.899 Other long term (current) drug therapy
CPT/HCPCS: 92960; 36415; 80048; 83690; 84484; 85025; 85027; 85379; 85610; 85730; 93005; 93306; 99222; 99284; J0330; J1650; J2250; J3010; Q9957

== ENCOUNTER → 2023-04-26 04:43 | Outpatient (BNV) | payer OTHER, SELFPAY | PROVIDERS: Emergency Provider Emergency Medicine; Visit Provider Internal Medicine Cardiovascular Disease | DX: I48.91 Unspecified atrial fibrillation (principal); I35.1 Nonrheumatic aortic (valve) insufficiency; R07.9 Chest pain, unspecified; I35.2 Nonrheumatic aortic (valve) stenosis with insufficiency | CPT/HCPCS: 92960; 93306; 99222; 99233 ==

== ENCOUNTER → 2023-04-26 04:43 | Outpatient (BNV) | payer OTHER, SELFPAY | PROVIDERS: Emergency Provider Emergency Medicine; Visit Provider Family Medicine | DX: I48.91 Unspecified atrial fibrillation (principal); I35.1 Nonrheumatic aortic (valve) insufficiency; R07.9 Chest pain, unspecified | CPT/HCPCS: 99223; 99239 ==

== ENCOUNTER 2023-04-26 10:56 | Outpatient (BNV) | payer OTHER, SELFPAY | END 2023-04-27 08:49 | PROVIDERS: Admitting Provider Family Medicine; Emergency Provider Emergency Medicine; Visit Provider Internal Medicine Cardiovascular Disease | DX: I35.1 Nonrheumatic aortic (valve) insufficiency (principal) | CPT/HCPCS: 93312; 93320; 93325 ==